=== PATIENT | male | born 1945 | race Caucasian/White ===

== ENCOUNTER 2016-03-09 08:28 | Outpatient (CLI) | payer MEDICARE, OTHER | END 2016-03-09 08:29 | disposition home or self-care (01) | DX: I48.91 Unspecified atrial fibrillation (principal); Z79.01 Long term (current) use of anticoagulants ==

== ENCOUNTER 2016-04-04 08:45 | Outpatient (CLI) | payer MEDICARE, OTHER | END 2016-04-04 08:46 | disposition home or self-care (01) | DX: Z13.6 Encounter for screening for cardiovascular disorders (principal); Z12.5 Encounter for screening for malignant neoplasm of prostate; Z13.29 Encounter for screening for other suspected endocrine disorder; Z13.0 Encounter for screening for diseases of the blood and blood-forming organs and certain disorders involving the immune mechanism; Z11.59 Encounter for screening for other viral diseases; E03.9 Hypothyroidism, unspecified | CPT/HCPCS: 36415; 80053; 80061; 84443; 85025; 86803; G0103 ==

== ENCOUNTER 2016-05-04 09:56 | Outpatient (CLI) | payer MEDICARE, OTHER | END 2016-05-04 09:57 | disposition home or self-care (01) | DX: I48.91 Unspecified atrial fibrillation (principal); Z79.01 Long term (current) use of anticoagulants ==

== ENCOUNTER 2016-06-01 07:56 | Outpatient (CLI) | payer MEDICARE, OTHER | END 2016-06-01 07:57 | disposition home or self-care (01) | DX: I48.91 Unspecified atrial fibrillation (principal); Z79.01 Long term (current) use of anticoagulants ==

== ENCOUNTER 2016-06-05 07:47 | Outpatient (CLI) | payer MEDICARE, OTHER | END 2016-06-05 07:48 | disposition home or self-care (01) | DX: I48.91 Unspecified atrial fibrillation (principal); Z79.01 Long term (current) use of anticoagulants ==

== ENCOUNTER 2016-06-19 13:17 | Outpatient (CLI) | payer MEDICARE, OTHER | END 2016-06-19 13:18 | disposition home or self-care (01) | DX: I48.91 Unspecified atrial fibrillation (principal); Z79.01 Long term (current) use of anticoagulants ==

== ENCOUNTER 2016-07-17 09:03 | Outpatient (CLI) | payer MEDICARE, OTHER | END 2016-07-17 09:04 | disposition home or self-care (01) | LOC: LAB.F 09:03 | DX: I48.91 Unspecified atrial fibrillation (principal); Z79.01 Long term (current) use of anticoagulants | CPT/HCPCS: 85610 ==

== ENCOUNTER 2016-08-22 08:00 | Outpatient (CLI) | payer MEDICARE, OTHER | END 2016-08-22 08:01 | disposition home or self-care (01) | LOC: LAB.F 08:00 | DX: I48.91 Unspecified atrial fibrillation (principal); Z79.01 Long term (current) use of anticoagulants | CPT/HCPCS: 85610 ==

== ENCOUNTER 2016-09-19 07:27 | Outpatient (CLI) | payer MEDICARE, OTHER | END 2016-09-19 07:28 | disposition home or self-care (01) | LOC: LAB.F 07:27 | DX: I48.91 Unspecified atrial fibrillation (principal); Z79.01 Long term (current) use of anticoagulants | CPT/HCPCS: 85610 ==

== ENCOUNTER 2016-10-19 07:48 | Outpatient (CLI) | payer MEDICARE, OTHER | END 2016-10-19 07:49 | disposition home or self-care (01) | LOC: LAB.F 07:48 | DX: I48.91 Unspecified atrial fibrillation (principal); Z79.01 Long term (current) use of anticoagulants | CPT/HCPCS: 85610 ==

== ENCOUNTER 2016-11-16 07:44 | Outpatient (CLI) | payer MEDICARE, OTHER | END 2016-11-16 07:45 | disposition home or self-care (01) | LOC: LAB.F 07:44 | DX: I48.91 Unspecified atrial fibrillation (principal); Z79.01 Long term (current) use of anticoagulants | CPT/HCPCS: 85610 ==

== ENCOUNTER 2016-12-26 07:33 | Outpatient (CLI) | payer MEDICARE, OTHER | END 2016-12-26 07:34 | disposition home or self-care (01) | LOC: LAB.F 07:33 | DX: I48.91 Unspecified atrial fibrillation (principal); Z79.01 Long term (current) use of anticoagulants | CPT/HCPCS: 85610 ==

== ENCOUNTER 2017-01-04 07:37 | Outpatient (CLI) | payer MEDICARE, OTHER | END 2017-01-04 07:38 | disposition home or self-care (01) | LOC: LAB.F 07:37 | DX: I48.91 Unspecified atrial fibrillation (principal); Z79.01 Long term (current) use of anticoagulants | CPT/HCPCS: 85610 ==

== ENCOUNTER 2017-02-06 08:08 | Outpatient (CLI) | payer MEDICARE, OTHER | END 2017-02-06 08:09 | disposition home or self-care (01) | LOC: LAB.F 08:08 | DX: I48.91 Unspecified atrial fibrillation (principal); Z79.01 Long term (current) use of anticoagulants | CPT/HCPCS: 85610 ==

== ENCOUNTER 2017-03-08 07:54 | Outpatient (CLI) | payer MEDICARE, OTHER | END 2017-03-08 07:55 | disposition home or self-care (01) | LOC: LAB.F 07:54 | DX: I48.91 Unspecified atrial fibrillation (principal); Z79.01 Long term (current) use of anticoagulants | CPT/HCPCS: 85610 ==

== ENCOUNTER 2017-04-05 07:57 | Outpatient (CLI) | payer MEDICARE, OTHER | END 2017-04-05 07:58 | disposition home or self-care (01) | LOC: LAB.F 07:57 | DX: I48.91 Unspecified atrial fibrillation (principal); Z79.01 Long term (current) use of anticoagulants | CPT/HCPCS: 85610 ==

== ENCOUNTER 2017-05-03 07:52 | Outpatient (CLI) | payer MEDICARE, OTHER | END 2017-05-03 07:53 | disposition home or self-care (01) | LOC: LAB.F 07:52 | DX: I48.91 Unspecified atrial fibrillation (principal); Z79.01 Long term (current) use of anticoagulants | CPT/HCPCS: 85610 ==

== ENCOUNTER 2017-06-04 08:09 | Outpatient (CLI) | payer MEDICARE, OTHER | END 2017-06-04 08:10 | disposition home or self-care (01) | LOC: LAB.F 08:09 | DX: I48.91 Unspecified atrial fibrillation (principal); Z79.01 Long term (current) use of anticoagulants | CPT/HCPCS: 85610 ==

== ENCOUNTER 2017-07-03 07:39 | Outpatient (CLI) | payer MEDICARE, OTHER | END 2017-07-03 07:40 | disposition home or self-care (01) | LOC: LAB.F 07:39 | DX: I48.91 Unspecified atrial fibrillation (principal); Z79.01 Long term (current) use of anticoagulants | CPT/HCPCS: 85610 ==

== ENCOUNTER 2017-08-03 07:17 | Outpatient (CLI) | payer MEDICARE, OTHER | END 2017-08-03 07:18 | disposition home or self-care (01) | LOC: LAB.F 07:17 | DX: I48.91 Unspecified atrial fibrillation (principal); Z79.01 Long term (current) use of anticoagulants | CPT/HCPCS: 85610 ==

== ENCOUNTER 2017-08-24 07:33 | Outpatient (CLI) | payer MEDICARE, OTHER | END 2017-08-24 07:34 | disposition home or self-care (01) | LOC: LAB.F 07:33 | DX: I48.91 Unspecified atrial fibrillation (principal); Z79.01 Long term (current) use of anticoagulants | CPT/HCPCS: 85610 ==

== ENCOUNTER 2017-08-27 10:05 | Outpatient (CLI) | payer MEDICARE, OTHER | END 2017-08-27 10:06 | disposition home or self-care (01) | LOC: LAB.F 10:05 | PROVIDERS: ATTEND Physical Medicine & Rehabilitation | DX: I48.91 Unspecified atrial fibrillation (principal); Z79.01 Long term (current) use of anticoagulants | CPT/HCPCS: 85610 ==

== ENCOUNTER 2017-09-06 07:48 | Outpatient (CLI) | payer MEDICARE, OTHER | END 2017-09-06 07:49 | disposition home or self-care (01) | LOC: LAB.F 07:48 | DX: I48.91 Unspecified atrial fibrillation (principal); Z79.01 Long term (current) use of anticoagulants | CPT/HCPCS: 85610 ==

== ENCOUNTER 2017-10-25 08:29 | Outpatient (CLI) | payer MEDICARE, OTHER | END 2017-10-25 08:30 | disposition home or self-care (01) | LOC: LAB.F 08:29 | DX: I48.91 Unspecified atrial fibrillation (principal); Z79.01 Long term (current) use of anticoagulants | CPT/HCPCS: 85610 ==

== ENCOUNTER 2017-10-30 07:57 | Outpatient (CLI) | payer MEDICARE, OTHER | END 2017-10-30 07:58 | disposition home or self-care (01) | LOC: LAB.F 07:57 | DX: I48.91 Unspecified atrial fibrillation (principal); Z79.01 Long term (current) use of anticoagulants | CPT/HCPCS: 85610 ==

== ENCOUNTER 2017-11-19 08:00 | Outpatient (CLI) | payer MEDICARE, OTHER | END 2017-11-19 08:01 | disposition home or self-care (01) | LOC: LAB.F 08:00 | PROVIDERS: ATTEND Internal Medicine Cardiovascular Disease | DX: Z95.2 Presence of prosthetic heart valve (principal); Z79.01 Long term (current) use of anticoagulants | CPT/HCPCS: 85610 ==

== ENCOUNTER 2017-11-23 07:46 | Outpatient (CLI) | payer MEDICARE, OTHER | END 2017-11-23 07:47 | disposition home or self-care (01) | LOC: LAB.F 07:46 | PROVIDERS: ATTEND Internal Medicine Cardiovascular Disease | DX: Z95.2 Presence of prosthetic heart valve (principal); Z51.81 Encounter for therapeutic drug level monitoring; Z79.01 Long term (current) use of anticoagulants; I48.91 Unspecified atrial fibrillation | CPT/HCPCS: 85610 ==

== ENCOUNTER 2017-11-29 07:56 | Outpatient (CLI) | payer MEDICARE, OTHER | END 2017-11-29 07:57 | disposition home or self-care (01) | LOC: LAB.F 07:56 | PROVIDERS: ATTEND Internal Medicine Cardiovascular Disease | DX: I48.91 Unspecified atrial fibrillation (principal); Z51.81 Encounter for therapeutic drug level monitoring; Z95.2 Presence of prosthetic heart valve; Z79.01 Long term (current) use of anticoagulants | CPT/HCPCS: 85610 ==

== ENCOUNTER 2017-12-11 07:51 | Outpatient (CLI) | payer MEDICARE, OTHER | END 2017-12-11 07:52 | disposition home or self-care (01) | LOC: LAB.F 07:51 | PROVIDERS: ATTEND Internal Medicine Cardiovascular Disease | DX: I48.91 Unspecified atrial fibrillation (principal); Z95.2 Presence of prosthetic heart valve; Z51.81 Encounter for therapeutic drug level monitoring; Z79.01 Long term (current) use of anticoagulants | CPT/HCPCS: 85610 ==

== ENCOUNTER 2017-12-25 13:20 | Outpatient (CLI) | payer MEDICARE, OTHER | END 2017-12-25 13:21 | disposition home or self-care (01) | LOC: LAB.F 13:20 | PROVIDERS: ATTEND Internal Medicine Cardiovascular Disease | DX: I48.91 Unspecified atrial fibrillation (principal); Z95.2 Presence of prosthetic heart valve; Z51.81 Encounter for therapeutic drug level monitoring; Z79.01 Long term (current) use of anticoagulants | CPT/HCPCS: 85610 ==

== ENCOUNTER 2018-04-12 09:24 | Outpatient (CLI) | payer MEDICARE, OTHER ==
[2018-04-12 18:25] LABS: PT - PROTHROMBIN TIME 52.4 secs (9.9-12.6)
[2018-04-12 18:48] LABS: INR 4.7 (0.8-1.2)
== END 2018-04-12 09:25 | disposition home or self-care (01) ==
LOC: LAB.F 09:24
PROVIDERS: ATTEND Internal Medicine Cardiovascular Disease
DX: I48.91 Unspecified atrial fibrillation (principal); Z95.2 Presence of prosthetic heart valve; Z51.81 Encounter for therapeutic drug level monitoring; Z79.01 Long term (current) use of anticoagulants
CPT/HCPCS: 36415; 85610

== ENCOUNTER 2018-05-09 07:40 | Outpatient (CLI) | payer MEDICARE, OTHER | END 2018-05-09 07:41 | disposition home or self-care (01) | LOC: LAB.F 07:40 | PROVIDERS: ATTEND Internal Medicine Cardiovascular Disease | DX: Z51.81 Encounter for therapeutic drug level monitoring (principal); Z95.2 Presence of prosthetic heart valve; Z79.01 Long term (current) use of anticoagulants; I48.91 Unspecified atrial fibrillation | CPT/HCPCS: 85610 ==

== ENCOUNTER 2019-04-20 14:18 | Outpatient (CLI) | payer MEDICARE, OTHER | END 2019-04-20 14:19 | disposition EMS.NT | LOC: EMS 14:18 | PROVIDERS: ATTEND Surgery | DX: R56.9 Unspecified convulsions (principal) ==

== ENCOUNTER 2022-05-12 11:30 | Outpatient (CLI) | payer MEDICARE, OTHER | END 2022-05-12 23:59 | disposition home or self-care (01) | LOC: LAB 11:30 | PROVIDERS: ATTEND Physician Assistant Medical | DX: N39.0 Urinary tract infection, site not specified (principal) | CPT/HCPCS: 87077; 87086; 87181 ==